=== PATIENT | male | born 1995 | race Two or more races ===

== ENCOUNTER 2019-05-05 02:43 | Emergency (ER) | payer SELFPAY ==
[~2019-05-05] VITALS: Ht 182.9 cm; Wt 90.9 kg
--- NOTE | 2019-05-05 02:55 | NUR ---
PT BIB [facility] WITH ETOH AND HEAD INJURY. PER FRIEND. PT WAS VOMITING INTO URINAL AND FELL, HITTING HEAD. NO OBVIOUS TRAUMA NOTED TO HEAD. PT RESPONDS TO PAINFUL STIMILUS. PUPILS ROSE @ 5. PT UNABLE TO FOLLOW COMMANDS AT THIS TIME. PER ERP, WILL MONITOR PT AND CONSIDER CT IF HE DOES NOT BEGIN TO WAKE UP. FRIENDS AT BEDSIDE.
[2019-05-05] MEDS ORDERED: ONDANSETRON 2MG/ML, 2ML ONE (03:05)
--- NOTE | 2019-05-05 03:15 | NUR ---
PT VOMITING. DISCUSSED WITH ERP AND ORDERS FOR 4 MG ZOFRAN RECEIVED. PT MEDICATED PER JUL. FRIENDS AT BEDSIDE. PT BECOMING MORE ALERT AND ABLE TO ANSWER SOME QUESTIONS BUT REMAINS CONFUSED AND DROWSY. CALL LIGHT IN REACH. MONITORING IN PLACE.
[2019-05-05] MEDS ORDERED: ONDANSETRON 2MG/ML, 2ML IVPush ONE (03:30)
--- NOTE | 2019-05-05 04:20 | NUR ---
PT SLEEPING WITH RESP EVEN AND UNLABORED. VOMITING RESOLVED. VSS. WILL CONTINUE TO MONITOR.
[2019-05-05 04:49] VITALS: BP 117/62
--- NOTE | 2019-05-05 04:50 | NUR ---
pt ambulating with steady gait. A&Ox4. ERP in to recheck and ok to d/c. Pt d/c home with friends.
== END 2019-05-05 04:51 | disposition home or self-care (01) ==
LOC: ED 04:15
DX: F10.120 Alcohol abuse with intoxication, uncomplicated (principal); F17.200 Nicotine dependence, unspecified, uncomplicated; Z72.9 Problem related to lifestyle, unspecified; Y90.9 Presence of alcohol in blood, level not specified
CPT/HCPCS: 36415; 80307; 96374; 99283; J2405